=== PATIENT | female | born 1995 | race Two or more races ===

== ENCOUNTER 2018-04-08 22:49 | Emergency (ER) | payer OTHER ==
[~2018-04-08] VITALS: Ht 152.4 cm; Wt 51.3 kg
[2018-04-08 23:20] VITALS: BP 144/97
--- NOTE | 2018-04-08 23:20 | NUR ---
Pt came in for right eye pain, describes is as uncomfortable and feels like there is pressure on it. Pt states she is wearing contact lenses but not sure if the lense was left in her right eye. Affected eye appears red. She is A, O/4, moves her extremities without difficulty, on RA. Visual check done by RIC Robins.
[2018-04-08] MEDS ORDERED: TETRACAINE HCL/PF 0.5% UD 2 ML BOTTLE ONE ×2 (23:27→23:36)
[2018-04-08] MEDS ORDERED: FLUORESCEIN SODIUM OPHTH 1 EA STRIP ONE ×3 (23:27→23:36)
[2018-04-08] MEDS ORDERED: TETRACAINE HCL/PF 0.5% UD 2 ML BOTTLE RIGHTEYE ONE (23:30)
[2018-04-08] MEDS ORDERED: FLUORESCEIN SODIUM OPHTH 1 EA STRIP OP ONE (23:30)
--- NOTE | 2018-04-08 23:40 | NUR ---
Assessed and medicated at BS by CARRIE Seaman. Pt tolerated procedure
== END 2018-04-09 00:20 | disposition home or self-care (01) ==
LOC: ER 22:56
DX: B99.9 Unspecified infectious disease (principal); H10.89 Other conjunctivitis; Z90.89 Acquired absence of other organs
CPT/HCPCS: A4606; Z7610